=== PATIENT | female | born 1995 | race Caucasian/White ===

== ENCOUNTER 2016-11-06 21:57 | Emergency (ER) | payer OTHER ==
[~2016-11-06] VITALS: Ht 162.6 cm; Wt 90.4 kg
[~2016-11-06 21:57] MED LIST: BCPILLS PO
[2016-11-06 21:59] VITALS: BP 135/86; PULSE 108; TEMP 36.8; O2SAT 98; Ht 162.6 cm; Wt 90.4 kg
[2016-11-06] MEDS ORDERED: ALBUT/IPRATROP 3MG/0.5MG NEB 3 ML VIAL INH ONE (23:00)
--- NOTE | 2016-11-07 03:00 | EMERGENCY ROOM VISIT NOTE ---
History First contact with patient: 22:36 Chief Complaint: EAR PAIN Stated Complaint: EAR PAIN,COUGH,WHEEZING History of Present Illness The patient is a 21 year old female who presents to the Emergency Room with complaints of ear pain, coughing, and wheezing for the past 2 days. The patient has not had fever or chills. No chest pain or shortness of breath. She has a history of asthma and did use her nebulizer last night without significant improvement of symptoms. She has not had recent travel history and denies chance of . She rates her discomfort a 7/10. Review of Systems More than 10 systems were reviewed and otherwise negative with the exception of history of present illness. Past Medical/Surgical History Medical Problems: (1) History of open heart surgery Family History Diabetes mellitus FATHER Social History Smoking Status: Never Smoker Alcohol Use: none Marital Status: in relationship Housing Status: lives with family Occupation Status: unemployed Current/Historical Medications No Active Prescriptions or Reported Meds Physical Exam Vital Signs Date Time Temp Pulse Resp B/P (MAP) Pulse Ox O2 Delivery O2 Flow Rate FiO2 11/06/16 21:59 36.8 108 18 135/86 98 Room Air Physical Exam VITALS: Vitals are noted on the nurse's note and reviewed by myself. Vital signs stable. GENERAL: Well-developed, well-nourished, white female, who is in no acute distress and resting comfortably. Patient is cooperative with the examination. HEAD: Normocephalic atraumatic. EARS: External ear normal. External auditory canals clear, tympanic membranes pearly whittaker without erythema or effusion bilaterally. No mastoid tenderness. NECK: Supple without nuchal rigidity. No lymphadenopathy. No thyromegaly. Cervical spine is nontender. HEART: Regular rate and rhythm without murmurs gallops or rubs. LUNGS: Generally clear throughout with scant expiratory wheezing in the lung bases bilateral. Medical Decision & Procedures ED Course Physical exam and history were performed. Nursing notes, EMR, and Medication List were personally reviewed. Patient appears to have reports of ear pain, coughing, and wheezing for the past 2 days. On examination the patient does not appear toxic. She was ordered a DuoNeb to alleviate what is felt to be an asthma exacerbation. Chest x-ray was also ordered. It was brought to my attention by the x-ray energy technician that she was unable to locate the patient for x-rays. The nurse and I were not able to locate the patient, who evidently eloped for unknown reason. The patient was not given discharge instructions, and I attempted to contact them by phone, but was unsuccessful. The chart was completed utilizing [employer] Speech Voice Recognition Software. Grammatical errors, random word insertions, pronoun errors, and incomplete sentences are an occasional consequence of this system due to software limitations, ambient noise, and hardware issues. Any formal questions or concerns about the content, text, or information contained within the body of this dictation should be directly addressed to the provider for clarification. . Medical Decision Differential diagnosis: Etiologies such as infections, reactive airway disease, pneumonia, pneumothorax , COPD, CHF, cardiac ischemia, pulmonary embolism, musculoskeletal, gastrointestinal, as well as others were entertained. Impression Primary Impression: Asthma exacerbation Additional Impression: History of elopement from health care facility Departure Information Dispostion Other (Eloped) Condition FAIR Prescriptions No Active Prescriptions or Reported Meds Referrals Claritza Kan, C.R.N.P (PCP) Forms WORK / SCHOOL INSTRUCTIONS, HOME CARE DOCUMENTATION FORM, IMPORTANT VISIT INFORMATION Patient Instructions My [facility] Problem Qualifiers
== END 2016-11-06 23:33 | disposition home or self-care (01) ==
LOC: C.EDB 21:58 → C.EDC 23:33
DX: J45.909 Unspecified asthma, uncomplicated (principal); Z91.19 Patient's noncompliance with other medical treatment and regimen

== ENCOUNTER → 2017-01-02 | Outpatient (CLI) | payer OTHER ==
--- NOTE | 2017-01-02 16:08 | DIAGNOSTIC IMAGING REPORT ---
R FINGER(S) MIN 2 VIEWS ROUTINE CLINICAL HISTORY: 21 years-old Female presenting with RINGER PAIN RT. TECHNIQUE: Frontal, oblique, and lateral views of the right fourth finger were obtained. COMPARISON: None. FINDINGS: No acute fracture or malalignment. No radiographic soft tissue abnormality. IMPRESSION: No acute osseous injury of the right fourth finger. Electronically signed by: Devon Coronado M.D. 01/02/2017 4:07 PM Dictated Date/Time: 01/02/2017 4:06 PM
== END | disposition home or self-care (01) ==
LOC: C.RADPV 15:40
PROVIDERS: ATTEND Nurse Practitioner Family
DX: M79.644 Pain in right finger(s) (principal)

== ENCOUNTER 2017-03-11 17:54 | Emergency (ER) | payer OTHER ==
[~2017-03-11] VITALS: Ht 154.9 cm; Wt 88.1 kg
[2017-03-11 17:56] VITALS: Ht 154.9 cm; Wt 88.1 kg
[2017-03-11] MEDS ORDERED: AMOX500T3 PO (18:28)
--- NOTE | 2017-03-11 18:28 | EMERGENCY ROOM VISIT NOTE ---
History First contact with patient: 18:00 Chief Complaint: FLU LIKE SX Stated Complaint: EAR PAIN, THROAT PAIN, COLD, FEEL WEAK History of Present Illness The patient is a 21 year old female who presents to the Emergency Room with complaints of sore throat and ear pain which began today. The patient states that she has had a full sensation in both of her ears. She has had a sore throat. She has taken Tylenol without relief. She has not taken her temperature and is unsure if she had a fever. She denies any recent sick contacts. She denies cough, shortness of breath, nausea/vomiting, diarrhea or abdominal pain. Review of Systems A complete 10 point review of systems was reviewed with the patient with pertinent positives and negatives as per history of present illness. All else were negative. Past Medical/Surgical History Medical Problems: (1) History of open heart surgery Family History Diabetes mellitus FATHER Social History Smoking Status: Never Smoker Alcohol Use: none Marital Status: in relationship Housing Status: lives with family Occupation Status: unemployed Current/Historical Medications Scheduled Amoxicillin (Amoxil), 500 MG PO TID Physical Exam Vital Signs Date Time Temp Pulse Resp B/P (MAP) Pulse Ox O2 Delivery O2 Flow Rate FiO2 03/11/17 18:33 37.4 98 18 135/81 98 03/11/17 18:26 98 18 135/81 98 Room Air 03/11/17 17:56 37.4 118 20 133/82 99 Room Air Physical Exam VITALS: Vitals are noted on the nurse's note and reviewed by myself. Vital signs stable. GENERAL: This is a 21-year-old female, in no acute distress, nondiaphoretic, well-developed well-nourished. SKIN: The skin was without rashes. EARS: External auditory canals clear, tympanic membranes pearly whittaker without erythema or effusion bilaterally. EYES: Pupils equal round and reactive to light and accommodation. MOUTH: Mucous membranes moist. Tonsils mildly enlarged bilaterally with exudate present, right greater than left. Uvula midline. Airway patent. NECK: Supple without nuchal rigidity. Bilateral anterior cervical lymphadenopathy which is tender to touch. HEART: Regular rate and rhythm without murmurs gallops or rubs. LUNGS: Clear to auscultation bilaterally without wheezes, rales or rhonchi. ABDOMEN: Soft, nontender to palpation. NEURO: Patient was alert and oriented to person place and time. Medical Decision & Procedures Laboratory Results Test 03/11/17 18:14 Influenza Type A (RT-PCR) Neg for Influ A (NEG) Influenza Type A Antigen Neg for Influ A (NEG) Influenza Type B Antigen Neg for Influ B (NEG) Influenza Type B (RT-PCR) Neg for Influ B (NEG) Medical Decision Differential diagnosis includes strep pharyngitis, viral pharyngitis, otitis media, URI, among others. The patient was evaluated as above. Presentation is consistent with strep pharyngitis. Strep swab was negative, however given high clinical suspicion the patient will be treated with antibiotics. She will be placed on amoxicillin. Conservative measures were discussed with the patient. She verbalized understanding of my assessment and treatment plan and was discharged home in good condition. Medication Reconcilliation Current Medication List: was personally reviewed by me Blood Pressure Screening Patient's blood pressure: Normal blood pressure Impression Primary Impression: Pharyngitis Departure Information Dispostion Home / Self-Care Condition GOOD Prescriptions Amoxicillin (AMOXIL) 500 Mg Tab 500 MG PO TID for 10 Days, #30 TAB Prov: Fernanda Membreno ., YASSINE 03/11/17 Referrals Claritza Kan C.R.N.P (PCP) Patient Instructions My [facility] Additional Instructions You were seen in the emergency department for your sore throat. Your symptoms are consistent with strep throat and he will be treated with an antibiotic. You were prescribed amoxicillin to be taken 3 times daily as prescribed. This is an antibiotic. All antibiotics have the potential to cause diarrhea. Stop this medication and contact a medical provider if you were to develop any significant adverse side effects including: wheezing, shortness of breath, passing out, vomiting, or a diffuse rash. Always take antibiotics as directed and COMPLETE the ENTIRE course regardless of the improvement of your symptoms. For pain and fever control, you can use the following [id number] medicines (if >12 yo): - Regular strength (325mg/tab) Tylenol (acetaminophen) 2 tabs every 4-6 hours as needed. Do not exceed 12 tablets in a 24 hour period. Avoid taking more than 4 grams (4000 mg) of Tylenol per day. This includes any other sources of acetaminophen you may take on a regular basis. - Regular strength (200 mg/tab) Advil (ibuprofen) 1-2 tabs every 4-6 hours as needed. Do not exceed a dose of 3200 mg per day. - For best results, alternate dosing of Tylenol and Advil. In addition to your prescribed medications, you can also use the following home remedies: - Warm salt-water gargles 3 times per day can soothe your throat and help to fight infection. - Warm tea with honey can soothe your throat. Return to the emergency department if your symptoms persist or worsen over the next 2-3 days despite treatment course outlined above. Return to the emergency department if you develop the following symptoms of: inability to swallow solids , liquids, or drool; excessive wheezing or inability to catch your breath; or intractable fever or pain. Follow up with your primary care provider in 2-3 days from today's emergency department visit. Problem Qualifiers Primary Impression: Pharyngitis Pharyngitis/tonsillitis etiology: streptococcus Qualified Codes: J02.0 - Streptococcal pharyngitis
[2017-03-11 18:33] VITALS: BP 135/81; PULSE 98; TEMP 37.4; O2SAT 98
[2017-03-11 19:57] LABS: INFLUENZA A PCR Neg for Influ A (NEG); INFLUENZA B PCR Neg for Influ B (NEG)
--- NOTE | 2017-03-12 16:52 | Pharmacy Progress Note ---
ED Pharmacist Culture FollowUp Date of Service: Mar 12, 2017. Patient was sent home with a prescription for amoxicillin, which should cover the group A strep growing from the patient's throat culture. I also called the patient to inform of results.
== END 2017-03-11 18:34 | disposition home or self-care (01) ==
LOC: C.EDB 17:55 → C.EDA 18:34
DX: J02.0 Streptococcal pharyngitis (principal); Z83.3 Family history of diabetes mellitus

== ENCOUNTER 2018-11-28 23:17 | Inpatient (IN) ==
[2018-11-29 00:09] LABS: Basophils # (auto) 0.02 K/uL (0-0.2); Basophils % (auto) 0.2 %; Eosinophils # (auto) 0.07 K/uL (0-0.5); Eosinophils % (auto) 0.7 %; Hematocrit (blood only) 40.4 % (37-47); Hemoglobin 14.4 g/dL (12.0-16.0); Immature Granulocytes # (auto) 0.02 K/uL (0.00-0.02); Immature Granulocytes % (auto) 0.2 %; Lymphocytes # (auto) 1.43 K/uL (1.2-3.4); Lymphocytes % (auto) 14.7 %; Mean Corpuscular Hgb Conc 35.6 g/dL (32-36); Mean Corpuscular Volume 80.5 fL (80-100); Mean Platelet Volume 11.1 fL (7.4-10.4); Monocytes # (auto) 0.66 K/uL (0.11-0.59); Monocytes % (auto) 6.8 %; Neutrophils % (auto) 77.4 %; Platelet Count 248 K/uL (130-400); RDW Coefficient of Variation 12.2 % (11.5-14.5); RDW Standard Deviation 35.2 fL (36.4-46.3); Red Blood Count 5.02 M/uL (4.2-5.4)
[2018-11-29 00:12] LABS: Pregnancy Test, Urine Negative (Negative)
[2018-11-29 00:15] LABS: Appearance Urine Clear (Clear); Bacteria Urine Automated Negative (Negative); Bilirubin Urine Negative (Negative); Blood Urine Trace (Negative); Cast Urine Automated 0 /lpf (0-5); Color Urine Yellow; Epithelial Cell Urine Auto >30 /lpf (0-5); Glucose Urine UA Negative (Negative); Ketones Urine Negative (Negative); Leukocyte Esterase Urine Trace (Negative); Nitrite Urine Negative (Negative); Protein Urine Negative (Negative); RBC Urine Automated 0-4 /hpf (0-4); Specific Gravity Urine 1.009 (1.000-1.030); Urobilinogen Urine Negative (Negative); pH Urine 6.5 (4.5-7.5)
[2018-11-29 00:27] LABS: Calcium 8.8 mg/dl (8.5-10.1); Creatinine Clr Calc Pharmacy 113.5 ml/min; Est GFR (African American) 124.4; Est GFR (Non-African American) 107.3; Potassium 3.8 mmol/L (3.5-5.1)
[2018-11-29 00:33] LABS: Acetaminophen < 2 ug/ml (10-30); Salicylate < 1.7 mg/dl (2.8-20)
[2018-11-29 00:35] LABS: Amphetamines+Metham, Urine Neg (Neg); Barbiturates, Urine Neg (Neg); Benzodiazepine, Urine Pos (Neg); Cocaine, Urine Neg (Neg); MDMA (Ecstacy), Urine Neg (Neg); Methadone, Urine Neg (Neg); Opiate, Urine Neg (Neg); Phencyclidine, Urine Neg (Neg)
[2018-11-29 00:38] LABS: Albumin Globulin Ratio 1.2 (0.9-2); Bilirubin,Total 1.5 mg/dl (0.2-1); Globulin 3.4 gm/dl (2.5-4.0); Total Protein 7.4 gm/dl (6.4-8.2)
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
[2018-11-29] MEDS ORDERED: MAGNESIUM HYDROXIDE SUSP 30 ML UDC PO PRN (04:32)
[2018-11-29] MEDS ORDERED: ACETAMINOPHEN 325 MG TAB PO PRN (04:32)
[2018-11-29] MEDS ORDERED: NICOTINE POLACRILEX 2 MG GUM MT PRN (04:32)
[2018-11-29] MEDS ORDERED: SODIUM CHLORIDE 0.65% NA SOLN 45 ML (OCEAN) PRN (04:32)
[2018-11-29] MEDS ORDERED: BISMUTH SUBSALICYLATE PER ML OMNICELL CHARGE PO PRN (04:32)
[2018-11-29] MEDS ORDERED: ALUMINUM/MAGNESIUM SUSP 30 ML UDC PO PRN (04:32)
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
[2018-11-29] MEDS: NICOTINE 21 MG/24 HR TDSY TD SCH (09:41)
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
[2018-11-30] MEDS: NICOTINE 21 MG/24 HR TDSY TD SCH (08:53)
[2018-12-01 12:48] LABS: 7-Aminoclonaz, Confirm NEGATIVE NG/ML (CUTOFF=25); Hydro-Alp Ur, GC/MS NEGATIVE NG/ML (CUTOFF=25); Hydroxyethylflurazepam, Conf NEGATIVE NG/ML (CUTOFF=50); Hydroxytriazolam NEGATIVE NG/ML (CUTOFF=50); Lorazepam, Ur GC/MS NEGATIVE NG/ML (CUTOFF=50); Nordiazepam, Confirm NEGATIVE NG/ML (CUTOFF=50); Oxazepam Ur, GC/MS NEGATIVE NG/ML (CUTOFF=50); Temazepam, Confirm NEGATIVE NG/ML (CUTOFF=50)
== END 2018-11-30 10:58 | disposition home or self-care (01) | DRG 882 ==
LOC: ED 23:17 → 3S 11-29 03:49
DX: F43.25 Adjustment disorder with mixed disturbance of emotions and conduct